=== PATIENT | male | born 1975 | race Caucasian/White ===

== ENCOUNTER 2018-01-19 11:38 | Emergency (ER) | payer OTHER ==
[~2018-01-19] VITALS: Ht 175.3 cm; Wt 78.2 kg
[2018-01-19 11:49] VITALS: BP 132/72
[2018-01-19] MEDS ORDERED: KETOROLAC 30 MG/1 ML ONE (12:23)
[2018-01-19] MEDS ORDERED: DIAZEPAM 5 MG TABLET ONE (12:23)
[2018-01-19] MEDS ORDERED: KETOROLAC 30 MG/1 ML IM ONE (12:30)
[2018-01-19] MEDS ORDERED: DIAZEPAM 5 MG TABLET PO ONE (12:30)
== END 2018-01-19 13:02 | disposition home or self-care (01) ==
LOC: ED 12:55
DX: S39.012A Strain of muscle, fascia and tendon of lower back, initial encounter (principal); M54.31 Sciatica, right side; X58.XXXA Exposure to other specified factors, initial encounter; Y93.89 Activity, other specified; Y92.89 Other specified places as the place of occurrence of the external cause; Y99.8 Other external cause status
CPT/HCPCS: 96372; 99283; J1885